=== PATIENT | male | born 1990 | race Caucasian/White ===

== ENCOUNTER 2017-10-18 11:48 | Emergency (ER) | payer BC ==
[2017-10-18 12:02] VITALS: PULSE 80; O2SAT 99
[2017-10-18] MEDS ORDERED: TYLENOL 325 MG PO STA (12:17)
[2017-10-18] MEDS ORDERED: Augmentin 875-125 Tablet PO ONE (12:17)
--- NOTE | 2017-10-18 12:27 | ERPHSYRPT ---
- History of Present Illness Time Seen by Provider: 10/18/17 12:15 Source: patient Exam Limitations: clinical condition Patient Subjective Stated Complaint: Pt states "I am here from [place] doing work and I have this pain in my tooth. It is really hurting now and I cannot sleep." Triage Nursing Assessment: Pt alert and oriented X 3, skin pwd. PT ambulates with an upright steady gait, ablee to speak in clear full sentences. Pt has dental carries noted to the upper right rear molars. Physician History: PATIENT COMPLAINS OF RIGHT UPPER TOOTHACHE SINCE EARLIER THIS AM ASSOCIATED WITH JAW SWALLOWING. DENIES FEVER, DIFFICULTY BREATHING OR SWALLOWING. Timing/Duration: abrupt onset Severity: moderate ENT Location: dental Prearrival Treatment: no prearrival treatment Modifying Factors: Improves With: nothing Associated Symptoms: other (FACIAL SWELLING) Allergies/Adverse Reactions: codeine Allergy (Intermediate, Verified 10/18/17 12:02) Rash Hx Tetanus, Diphtheria Vaccination/Date Given: No Hx Influenza Vaccination/Date Given: No Hx Pneumococcal Vaccination/Date Given: No Immunizations Up to Date: Yes - Review of Systems Constitutional: No Fever, No Chills Eyes: No Symptoms Ears, Nose, & Throat: Other (DENTAL PAIN) Respiratory: No Symptoms Cardiac: No Symptoms Abdominal/Gastrointestinal: No Symptoms Genitourinary Symptoms: No Symptoms Musculoskeletal: No Symptoms Neurological: No Symptoms - Past Medical History Pertinent Past Medical History: No - Past Surgical History Past Surgical History: No - Social History Smoking Status: Current every day smoker How long have you smoked: 7 years Exposure to second hand smoke: Yes Drug Use: none Patient Lives Alone: No - Nursing Vital Signs Nursing Vital Signs: Initial Vital Signs Temperature 98.2 F 10/18/17 11:57 Pulse Rate 80 10/18/17 11:57 Respiratory Rate 18 10/18/17 11:57 Blood Pressure 149/91 10/18/17 11:57 O2 Sat by Pulse Oximetry 99 10/18/17 11:57 Pain Scale Pain Intensity 8 - Physical Exam General Appearance: mild distress Eye Exam: bilateral eye: PERRL, EOMI Ear Exam: bilateral ear: auricle normal, canal normal, TM normal Nasal Exam: normal inspection Throat Exam: dental tenderness (GINGIVAL SWELLING) Neck Exam: normal inspection Cardiovascular/Respiratory Exam: chest non-tender, normal breath sounds, regular rate/rhythm, heart sounds normal Neurologic Exam: alert, oriented x 3, sensation nml, No motor deficits Skin Exam: normal color SpO2 Interpretation: normal SpO2: 99 Oxygen Delivery: Room Air Ordered Tests: Medication Summary Discontinued Medications Generic Name Dose Route Start Last Admin Trade Name Kenisha PRN Reason Stop Dose Admin Acetaminophen 650 mg 10/18/17 12:17 10/18/17 12:33 Tylenol 325 Mg PO 10/18/17 12:18 650 mg STAT STA Administration Acetaminophen Confirm 10/18/17 12:32 Tylenol 325 Mg Administered 10/18/17 12:33 Dose 650 mg .ROUTE .STK-MED ONE Amoxicillin/Clavulanate Potassium 875 mg 10/18/17 12:17 10/18/17 12:33 Augmentin 875-125 Tablet PO 10/18/17 12:18 875 mg STAT ONE Administration Amoxicillin/Clavulanate Potassium Confirm 10/18/17 12:32 Augmentin 875-125 Tablet Administered 10/18/17 12:33 Dose 875 mg .ROUTE .STK-MED ONE - Progress Progress: pain not gone completely Progress Note: 10/18/17 12:22 ADMINISTERED AUGMENTIN 875MG AND TYLENOL 650MG ORALLY Counseled pt/family regarding: diagnosis, need for follow-up - Departure Time of Disposition: 12:45 Departure Disposition: Home Clinical Impression: DENTAL CARIES Condition: Stable Critical Care Time: No Additional Instructions: CALL A DENTIST TOMORROW TO SCHEDULE APPOINTMENT FOR EVALUATION. MOTRIN 600MG EVERY 6 HOURS FOR MILD TO MODERATE PAIN. NORCO 10/325 EVERY 6 HOURS FOR SEVERE PAIN DISCOMFORT. ANTIBIOTIC AUGMENTIN 875MG TWICE DAILY FOR 10 DAYS. Prescriptions: Hydrocodone/APAP 10/325 mg [Venus 10/325 MG Tablet] 1 tab PO Q6H PRN PRN # 6 tablet MDD 4 PRN Reason: Pain Ibuprofen 600 mg PO Q6HPRN PRN #20 tablet PRN Reason: Pain Amox Tr/Potass Clav. 875 mg [Augmentin 875-125 Tablet] 875 mg PO BID #20 tablet
[2017-10-18] MEDS ORDERED: Augmentin 875-125 Tablet ONE (12:32)
[2017-10-18] MEDS ORDERED: TYLENOL 325 MG ONE (12:32)
[2017-10-18 13:18] VITALS: BP 137/87
== END 2017-10-18 13:24 | disposition home or self-care (01) ==
LOC: ED 11:48
DX: K02.9 Dental caries, unspecified (principal); K08.89 Other specified disorders of teeth and supporting structures
CPT/HCPCS: 99283; A9270-GY